=== PATIENT | female | born 1985 | race Caucasian/White ===

== ENCOUNTER 2016-12-02 09:52 | Emergency (ER) | payer MEDICAID ==
--- NOTE | 2016-12-02 10:05 | Emergency Department Record ---
History of Present Illness - General Chief complaint: Dental Stated complaint: DENTAL PAIN Time Seen by Provider: 12/02/16 10:05 Source: Patient Mode of Arrival: Ambulatory Limitations: No limitations - History of Present Illness Initial comments: The patient is here due to L sided dental pain for 1 day. The upper and lower molars on the L seem to be painful. She denies any swelling, fever, chills, or trauma. MD complaint: Tooth pain Onset/Timin -: Days(s) Severity: Moderate Severity scale (1-10): 10 Quality: Aching, Sharp Consistency: Constant Improves with: None - Related Data Previous Rx's Medication Instructions Recorded Naproxen [Naprosyn] 500 mg PO BID #14 tablet. 12/02/16 Penicillin V Potassium 500 mg PO QID #28 tablet 12/02/16 Allergies Allergy/AdvReac Type Severity Reaction Status Date / Time diphenhydramine HCl Allergy Severe SWELLING Verified 12/02/16 10:00 [From Benadryl] OF THE FACE divalproex sodium Allergy Severe RAPID Verified 12/02/16 10:00 [From Depakote] HEART RATE citalopram hydrobromide Allergy Intermediate RASH Verified 12/02/16 10:00 [From Celexa] escitalopram oxalate Allergy Intermediate RASH Verified 12/02/16 10:00 [From Lexapro] haloperidol [From Haldol] Allergy Intermediate RASH Verified 12/02/16 10:00 haloperidol lactate Allergy Intermediate RASH Verified 12/02/16 10:00 [From Haldol] latex Allergy Intermediate RASH Verified 12/02/16 10:00 Travel Screening - Travel/Exposure Within Last 30 Days Have you traveled within the last 30 days?: No - Travel/Exposure Within Last Year Have you traveled outside the [place] in the last year?: No - Additonal Travel Details Have you been exposed to anyone with a communicable illness?: No - Travel Symptoms Symptom Screening: None Review of Systems Constitutional: Denies: Chills, Fever Eyes: Denies: Eye discharge ENT: Denies: Congestion Respiratory: Denies: Cough, Dyspnea Past Medical History - SOCIAL HISTORY Smoking Status: Current every day smoker Alcohol Use: Occassional Drug Use: None - RESPIRATORY Hx Respiratory Disorders: No - CARDIOVASCULAR Hx Cardio Disorders: Yes Hx Hypertension: Yes - NEURO Hx Neuro Disorders: No - GI Hx GI Disorders: No - Hx Genitourinary Disorders: No - ENDOCRINE Hx Endocrine Disorders: No - MUSCULOSKELETAL Hx Musculoskeletal Disorders: No - PSYCH Hx Psych Problems: Yes Hx Anxiety: Yes - HEMATOLOGY/ONCOLOGY Hx Hematology/Oncology Disorders: No Family Medical History Any Significant Family History?: Yes Hx Cancer: Father, Mother Hx Depression: Father, Mother Hx Stroke: Grandparents Physical Exam - General General Appearance: Alert, Oriented x3, Cooperative, No acute distress - Head Head exam: Atraumatic, Normocephalic, Normal inspection - Eye Eye exam: Normal appearance, PERRL - ENT Teeth exam: Dental caries, Dental tenderness # (14, 15, and 18, 19. There is no abscess or gum line swelling.). negative: Normal inspection Throat exam: Normal inspection. negative: Tonsillar erythema, Tonsillomegaly - Neck Neck exam: Normal inspection, Full ROM. negative: Tenderness - Respiratory Respiratory exam: Normal lung sounds bilaterally. negative: Respiratory distress Course Vital Signs 12/02/16 12/02/16 09:55 10:01 Temperature 97.6 F 97.4 F L Pulse Rate [ 65 Pulse Ox Probe] Respiratory 12 Rate Blood Pressure 158/96 [Left Arm] Pulse Ox 98 - Reevaluation(s) Reevaluation #1: I did discuss the plan with the patient to take the medicines and F/U with her Dentist HARDIK. 12/02/16 10:12 Disposition Disposition: Discharge Clinical Impression: Pain, dental Disposition: Home, Self-Care Condition: (1) Good Instructions: Toothache (ED) Additional Instructions: Please take the Penicillin and Naprosyn as directed. Please see your Dentist tomorrow for recheck. Prescriptions: Naproxen [Naprosyn] 500 mg PO BID #14 tablet. Penicillin V Potassium 500 mg PO QID #28 tablet Forms: Patient Portal Access Time of Disposition: 10:09
== END 2016-12-02 10:18 | disposition home or self-care (01) ==
LOC: ER 09:52
DX: K02.9 Dental caries, unspecified (principal)
CPT/HCPCS: 99282

== ENCOUNTER 2017-03-03 21:17 | Emergency (ER) | payer MEDICAID ==
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
[2017-03-03] MEDS ORDERED: HYDROXYZINE PAMOATE 25 MG CAPSULE PO ONE ×2 (21:42→22:21)
[2017-03-03] MEDS ORDERED: ACETAMINOPHEN 325 MG TAB PO ONE (21:42)
== END 2017-03-03 22:35 | disposition home or self-care (01) ==
LOC: ER 21:17
DX: S40.011A Contusion of right shoulder, initial encounter (principal); R51 Headache; R03.0 Elevated blood-pressure reading, without diagnosis of hypertension; Y04.2XXA Assault by strike against or bumped into by another person, initial encounter; Y92.002 Bathroom of unspecified non-institutional (private) residence as the place of occurrence of the external cause
CPT/HCPCS: 99283; 99284

== ENCOUNTER 2017-07-26 23:01 | Emergency (ER) | payer MEDICAID ==
[2017-07-27] MEDS ORDERED: ONDANSETRON HCL IV 4 MG/2 ML VIAL IV ONE (00:11)
[2017-07-27] MEDS ORDERED: 0.9 % SODIUM CHLORIDE 1,000 ML BAG IV ONE (00:11)
[2017-07-27] MEDS ORDERED: ONDANSETRON HCL IV 4 MG/2 ML VIAL IVP ONE (00:17)
[2017-07-27] MEDS ORDERED: MORPHINE SULFATE 5 MG/ML PFS IVP ONE (00:17)
--- NOTE | 2017-07-27 00:17 | Emergency Department Record ---
History of Present Illness - General Chief Complaint: Abdominal Pain Stated Complaint: ABDOMINAL PAIN Time Seen by Provider: 07/26/17 23:25 Source: Patient, Family Mode of Arrival: Ambulatory Limitations: No limitations - History of Present Illness Initial Comments: 32 yo female presents with 5 days of nausea, vomiting, urinary frequency, abdominal pain that starts on the right side. No hematuria. No diarrhea. No fever. She has a history of 2 times and histerectomy. No rash. No fever. She has had gall bladder issues in the past. No blood in the vomit or diarrhea. No sick contacts. No pain with urination. MD Complaint: Abdominal pain Onset/Timin -: Week(s) Location: R Flank Radiation: LLQ, RLQ Migration to: RUQ Severity: Moderate Quality: Cramping, Sharp, Stabbing Consistency: Intermittent Improves With: Nothing Worsens With: Nothing Associated Symptoms: Anorexia, Nausea, Vomiting, Other - Related Data Patient : No Previous Rx's Medication Instructions Recorded Hydrocodone/Acetaminophen [[place] 1 each PO Q8H #8 tablet 07/27/17 5-325 Tablet] Ondansetron [Zofran Odt] 4 mg PO Q8H #15 tab.rapdis 07/27/17 Allergies Allergy/AdvReac Type Severity Reaction Status Date / Time diphenhydramine HCl Allergy Severe SWELLING Unverified 06/05/17 09:29 [From Benadryl] OF THE FACE divalproex sodium Allergy Severe RAPID Unverified 06/05/17 09:29 [From Depakote] HEART RATE citalopram hydrobromide Allergy Intermediate RASH Unverified 06/05/17 09:29 [From Celexa] escitalopram oxalate Allergy Intermediate RASH Unverified 06/05/17 09:29 [From Lexapro] haloperidol [From Haldol] Allergy Intermediate RASH Unverified 06/05/17 09:29 haloperidol lactate Allergy Intermediate RASH Unverified 06/05/17 09:29 [From Haldol] latex Allergy Intermediate RASH Unverified 06/05/17 09:29 Travel Screening - Travel/Exposure Within Last 30 Days Have you traveled within the last 30 days?: No - Travel Symptoms Symptom Screening: Vomiting, Stomach Pain Review of Systems Constitutional: Denies: Chills, Fever, Malaise, Weakness Eyes: Denies: Eye discharge, Eye pain, Photophobia ENT: Denies: Congestion, Throat pain Respiratory: Denies: Cough, Dyspnea, Hemoptysis, Stridor, Wheezes Cardiovascular: Denies: Chest pain, Palpitations, Syncope Endocrine: Reports: Polyuria. Denies: Fatigue Gastrointestinal: Reports: Abdominal pain, Nausea, Vomiting. Denies: Diarrhea, Hematemesis, Hematochezia, Melena Genitourinary: Reports: Frequency, Urgency. Denies: Discharge, Dysuria, Hematuria, Incontinence, Retention Musculoskeletal: Reports: Back pain. Denies: Arthralgia, Joint swelling, Myalgia, Neck pain Skin: Denies: Bruising, Change in color, Rash Neurological: Denies: Headache, Numbness, Vertigo, Weakness Psychiatric: Denies: Anxiety Hematological/Lymphatic: Denies: Blood Clots, Easy bleeding, Easy bruising, Swollen glands Past Medical History - SOCIAL HISTORY Smoking Status: Current every day smoker - RESPIRATORY Hx Respiratory Disorders: No - CARDIOVASCULAR Hx Cardio Disorders: Yes Hx Hypertension: Yes - NEURO Hx Neuro Disorders: No - GI Hx GI Disorders: No - Hx Genitourinary Disorders: No - ENDOCRINE Hx Endocrine Disorders: No - MUSCULOSKELETAL Hx Musculoskeletal Disorders: No - PSYCH Hx Psych Problems: Yes Hx Anxiety: Yes Comment:: PTSD. scizophernia - HEMATOLOGY/ONCOLOGY Hx Hematology/Oncology Disorders: No Family Medical History Any Significant Family History?: Yes Hx Cancer: Father, Mother Hx Depression: Father, Mother Hx Stroke: Grandparents Physical Exam - General General Appearance: Alert, Oriented x3, Cooperative, No acute distress Limitations: No limitations - Head Head exam: Atraumatic, Normal inspection - Eye Eye exam: Normal appearance, PERRL. negative: Conjunctival injection, Periorbital swelling - ENT ENT exam: Normal exam, Mucous membranes moist, Normal orophraynx. negative: Mucous membranes dry Ear exam: Normal external inspection Nasal Exam: Normal inspection Mouth exam: Normal external inspection - Neck Neck exam: Normal inspection, Full ROM. negative: Tenderness - Respiratory Respiratory exam: Normal lung sounds bilaterally. negative: Respiratory distress - Cardiovascular Cardiovascular Exam: Regular rate, Normal rhythm, Normal heart sounds - GI/Abdominal GI/Abdominal exam: Soft, Tenderness (tender in the RUQ, right flank, soft, non distended). negative: Distended, Guarding - Rectal Rectal exam: Deferred - exam: Deferred - Extremities Extremities exam: Normal inspection, Full ROM, Normal capillary refill. negative: Tenderness - Back Back exam: Reports: Normal inspection, CVA tenderness (R), Full ROM, Tenderness. Denies: Muscle spasm, Rash noted - Neurological Neurological exam: Alert, Normal gait, Oriented X3 - Psychiatric Psychiatric exam: Normal affect, Normal mood. negative: Agitated, Anxious - Skin Skin exam: Dry, Intact, Normal color, Warm Course Vital Signs 07/26/17 23:57 Temperature 98.1 F Pulse Rate [ 71 Pulse Ox Probe] Respiratory 20 Rate Blood Pressure 138/78 [Left Arm] Pulse Ox 97 - Reevaluation(s) Reevaluation #1: UA is normal with Spec [place] of 1.030 07/27/17 00:45 Reevaluation #2: No acute changes on the CBC VRAD CT scan demonstrates benign right adrenal adenoma, 2.1 cm benign left ovarian cyst. 07/27/17 01:09 Reevaluation #3: No acute changes on the CMP or Lipase 07/27/17 01:16 Medical Decision Making - Lab Data Result diagrams: 07/27/17 00:42 07/27/17 00:42 Disposition Disposition: Discharge Clinical Impression: Vomiting Qualifiers: Vomiting type: unspecified Vomiting Intractability: non-intractable Nausea presence: with nausea Qualified Code(s): R11.2 - Nausea with vomiting, unspecified Abdominal pain Qualifiers: Abdominal location: right upper quadrant Qualified Code(s): R10.11 - Right upper quadrant pain Disposition: Home, Self-Care Condition: (1) Good Instructions: Abdominal Pain (ED) Additional Instructions: Return to the ER if you have fever, uncontrolled nausea, pain or any new concerns Recheck your urine with your doctor first of the week if your urinary symptoms continue If you pain continues then you may need further work up that could include a HIDA scan or GI consult. Prescriptions: Hydrocodone/Acetaminophen [[place] 5-325 Tablet] 1 each PO Q8H #8 tablet Ondansetron [Zofran Odt] 4 mg PO Q8H #15 tab.rapdis Forms: Patient Portal Access Time of Disposition: 01:18 Quality - Quality Measures Quality Measures: N/A - Blood Pressure Screening Does Patient Have Any of the Following: No Blood Pressure Classification: Pre-Hypertensive BP Reading Systolic Measurement: 138 Diastolic Measurement: 78 Screening for High Blood Pressure: < Pre-Hypertensive BP, F/U Documented > [ [id number]] Pre-Hypertensive Follow-up Interventions: Referral to alternative/primary care provider.
[2017-07-27 00:30] LABS: URINE APPEARANCE CLEAR; URINE BILIRUBIN NEGATIVE (NEGATIVE); URINE BLOOD NEGATIVE (NEGATIVE); URINE COLOR YELLOW; URINE GLUCOSE (UA) NEGATIVE (NEGATIVE); URINE KETONE NEGATIVE (NEGATIVE); URINE LEUKOCYTE ESTERASE NEGATIVE (NEGATIVE); URINE NITRITE NEGATIVE (NEGATIVE); URINE PROTEIN NEGATIVE (NEGATIVE); URINE UROBILINOGEN 0.2 E.U./dL (0.20 - 1.00)
[2017-07-27 00:34] LABS: HCG,QUALITATIVE URINE NEGATIVE (NEGATIVE)
[2017-07-27 00:52] LABS: BASO % 0.2 % (0-6); EOS % 1.6 % (0-6); HEMATOCRIT 41.1 % (35.0-47.0); HEMOGLOBIN 14.2 gm/dl (11.6-16.0); LYMPH % 37.3 % (16-45); MEAN CELL VOLUME 90.1 fl (81-97); MEAN CORPUSCULAR HEMOGLOBIN 31.1 pg (27-33); MEAN CORPUSCULAR HGB CONC 34.5 g/dl (32-36); MEAN PLATELET VOLUME 11.2 fl (7.4-10.4); MONO % 7.9 % (0-9); PLATELET COUNT 266 K/uL (130-400); RED BLOOD COUNT 4.56 M/uL (3.80-5.40); RED CELL DISTRIBUTION WIDTH 13.2 % (11.5-14.5); WHITE BLOOD COUNT W/O DIFF 12.2 K/uL (4.2-12.2)
[2017-07-27 01:12] LABS: ALB/GLOB RATIO 1.3 (1.1-1.8); ALKALINE PHOSPHATASE 67 U/L (38-126); ALT/SGPT 32 U/L (9-52); ANION GAP 7.2 (7-16); AST/SGOT 15 U/L (14-36); BILIRUBIN,TOTAL 0.45 mg/dL (0.2-1.3); BLOOD UREA NITROGEN 15 mg/dL (7-17); CARBON DIOXIDE 24.8 mmol/L (22-30); CREATININE 0.8 mg/dL (0.52-1.04); EST GLOMERULAR FILTRATION RATE > 60 ml/min; GLUCOSE,RANDOM 99 mg/dL (70-110); LIPASE 107 U/L (23-300)
--- NOTE | 2017-07-27 22:13 | CT SCAN REPORT ---
EXAM: CT SCAN ABDOMEN/PELVIS WO CONTRAST HISTORY: ACUTE RIGHT LOWER QUADRANT ABDOMINAL PAIN, FLANK PAIN. COMPARISON: None. TECHNIQUE: Contiguous axial images from the lung bases through the symphysis pubis were obtained without IV contrast. FINDINGS: The lung bases are clear. The liver, spleen, and kidneys are unremarkable. No calculi or hydronephrosis. Small right adrenal nodule measuring -5 Hounsfield units in density and 16 mm in size consistent with benign adenoma. Normal left adrenal. The pancreas and gallbladder are normal. Visualized loops of small and large bowel are of normal caliber with normal appendix. Small amount of fecal material throughout the colon. No bowel wall thickening. The urinary bladder is unremarkable. No free intraperitoneal fluid or adenopathy. Minimal aortic calcification. No lytic or blastic osseous lesion. IMPRESSION: 1. NO ACUTE PROCESS OF THE ABDOMEN OR PELVIS. NORMAL APPENDIX. 2. BENIGN RIGHT ADRENAL ADENOMA. JOB NUMBER: [id number] [facility]
== END 2017-07-27 01:42 | disposition home or self-care (01) ==
LOC: ER 23:01
DX: R10.11 Right upper quadrant pain (principal); R11.2 Nausea with vomiting, unspecified
CPT/HCPCS: 99284 ×2; 96374; 96375; 83690; 85025; 80053; 81003; 81025; 74176; J2405; J2270; J7030

== ENCOUNTER 2017-10-01 14:26 | Emergency (ER) | payer MEDICAID ==
--- NOTE | 2017-10-01 15:23 | Emergency Department Record ---
History of Present Illness - General Chief Complaint: Depression Stated Complaint: MEDS MAKING PT FEEL DEPRESSED Time Seen by Provider: 10/01/17 15:06 Source: Patient Mode of Arrival: Ambulatory Limitations: No limitations Travel/Exposure to [place] Within 21 Days of Symptoms: No - History of Present Illness Initial Comments: pt has been on paxil since april by her family doctor and feels it is not working. she feels angry and is breaking things. she denies being suicidal or homicidal. she has had 2 recent funerals and is depressed. she attempted to be seen by [facility] and was sent over here Complaint: Feels depressed Onset/Timin -: Week(s) Associated Psychiatric Symptoms: Depression, Racing thoughts History of same: Yes Quality: Intermittent Improves With: None Worsens With: Medication Context: New medication(s), Significant life stressor Associated Symptoms: Denies other symptoms Treatments Prior to Arrival: None - [place] Coma Scale Eye Response: (4) Open spontaneously Motor Response: (6) Obeys commands Verbal Response: (5) Oriented Danielle Total: 15 - Related Data Previous Rx's Medication Instructions Recorded Ondansetron [Zofran Odt] 4 mg PO Q8H #15 tab.rapdis 07/27/17 Lorazepam [Ativan] 0.5 mg PO TID #20 tablet 10/01/17 Allergies Allergy/AdvReac Type Severity Reaction Status Date / Time diphenhydramine HCl Allergy Severe SWELLING Verified 10/01/17 14:40 [From Benadryl] OF THE FACE divalproex sodium Allergy Severe RAPID Verified 10/01/17 14:40 [From Depakote] HEART RATE citalopram hydrobromide Allergy Intermediate RASH Verified 10/01/17 14:40 [From Celexa] escitalopram oxalate Allergy Intermediate RASH Verified 10/01/17 14:40 [From Lexapro] haloperidol [From Haldol] Allergy Intermediate RASH Verified 10/01/17 14:40 haloperidol lactate Allergy Intermediate RASH Verified 10/01/17 14:40 [From Haldol] latex Allergy Intermediate RASH Verified 10/01/17 14:40 Review of Systems Reviewed: No additional complaints except as noted below Constitutional: Reports: As per HPI. Denies: Chills, Fever, Malaise, Night sweats, Weakness, Weight change Eyes: Reports: As per HPI. Denies: Eye discharge, Eye pain, Photophobia, Vision change ENT: Reports: As per HPI. Denies: Congestion, Dental pain, Ear pain, Epistaxis , Hearing loss, Throat pain Respiratory: Reports: As per HPI. Denies: Cough, Dyspnea, Hemoptysis, Stridor, Wheezes Cardiovascular: Reports: As per HPI. Denies: Arrhythmia, Chest pain, Dyspnea on exertion, Edema, Murmurs, Orthopnea, Palpitations, Paroxysmal nocturnal dyspnea, Rheumatic Fever, Syncope Endocrine: Reports: As per HPI. Denies: Fatigue, Heat or cold intolerance, Polydipsia, Polyuria Gastrointestinal: Reports: As per HPI. Denies: Abdominal pain, Constipation, Diarrhea, Hematemesis, Hematochezia, Melena, Nausea, Vomiting Genitourinary: Reports: As per HPI. Denies: Abnormal menses, Discharge, Dyspareunia, Dysuria, Frequency, Hematuria, Incontinence, Retention, Urgency Musculoskeletal: Reports: As per HPI. Denies: Arthralgia, Back pain, Gout, Joint swelling, Myalgia, Neck pain Skin: Reports: As per HPI. Denies: Bruising, Change in color, Change in hair/ nails, Lesions, Pruritus, Rash Neurological: Reports: As per HPI. Denies: Abnormal gait, Confusion, Headache, Numbness, Paresthesias, Seizure, Tingling, Tremors, Vertigo, Weakness Psychiatric: Reports: As per HPI. Denies: Anxiety, Auditory hallucinations, Depression, Homicidal thoughts, Suicidal thoughts, Visual hallucinations Hematological/Lymphatic: Reports: As per HPI. Denies: Anemia, Blood Clots, Easy bleeding, Easy bruising, Swollen glands Past Medical History - SOCIAL HISTORY Smoking Status: Current every day smoker Alcohol Use: None Drug Use: None - RESPIRATORY Hx Respiratory Disorders: No - CARDIOVASCULAR Hx Cardio Disorders: Yes Hx Hypertension: Yes - NEURO Hx Neuro Disorders: No - GI Hx GI Disorders: No - Hx Genitourinary Disorders: No - ENDOCRINE Hx Endocrine Disorders: No - MUSCULOSKELETAL Hx Musculoskeletal Disorders: No - PSYCH Hx Psych Problems: Yes Hx Anxiety: Yes Comment:: PTSD. scizophernia - HEMATOLOGY/ONCOLOGY Hx Hematology/Oncology Disorders: No Family Medical History Any Significant Family History?: Yes Hx Cancer: Father, Mother Hx Depression: Father, Mother Hx Stroke: Grandparents Physical Exam - General General Appearance: Alert, Oriented x3, Cooperative, Mild distress - Head Head exam: Normal inspection - Eye Eye exam: Normal appearance, PERRL, EOMI Pupils: Normal accommodation - ENT ENT exam: Normal exam, Mucous membranes moist, Normal external ear exam, Normal orophraynx Ear exam: Normal external inspection. negative: External canal tenderness Nasal Exam: Normal inspection. negative: Discharge, Sinus tenderness Mouth exam: Normal external inspection, Tongue normal Teeth exam: Normal inspection. negative: Dental caries Throat exam: Normal inspection. negative: Tonsillar erythema, Tonsillar exudate - Neck Neck exam: Normal inspection, Full ROM. negative: Tenderness - Respiratory Respiratory exam: Normal lung sounds bilaterally. negative: Respiratory distress - Cardiovascular Cardiovascular Exam: Regular rate, Normal rhythm, Normal heart sounds - GI/Abdominal GI/Abdominal exam: Soft, Normal bowel sounds. negative: Tenderness - Rectal Rectal exam: Deferred - exam: Deferred - Extremities Extremities exam: Normal inspection, Full ROM, Normal capillary refill. negative: Tenderness - Back Back exam: Reports: Normal inspection, Full ROM. Denies: Muscle spasm, Rash noted, Tenderness - Neurological Neurological exam: Alert, CN II-XII intact, Normal gait, Oriented X3 - Psychiatric Psychiatric exam: Depressed, Normal mood - Skin Skin exam: Dry, Intact, Normal color, Warm Course Vital Signs 10/01/17 14:32 Temperature 98.1 F Pulse Rate 71 Respiratory 18 Rate Blood Pressure 177/97 Pulse Ox 97 - Reevaluation(s) Reevaluation #1: 10/01/17 15:22 case d/w dr smith who came over to dept. taper planned off of paxil. ativan to help with bridge and anxiety Disposition Disposition: Discharge Clinical Impression: Anxiety Depression Qualifiers: Depression Type: other depression Qualified Code(s): F32.89 - Other specified depressive episodes Disposition: Home, Self-Care Condition: (1) Good Instructions: Depression (ED), Anxiety (ED) Additional Instructions: taper paxil to every other day. follow up with dr smith next week. return sooner if worse Prescriptions: Lorazepam [Ativan] 0.5 mg PO TID #20 tablet Quality - Quality Measures Quality Measures: N/A - Blood Pressure Screening Does Patient Have Any of the Following: No Blood Pressure Classification: Hypertensive Reading Systolic Measurement: 177 Diastolic Measurement: 97 Screening for High Blood Pressure: < First Hypertensive BP, F/U Documented > [ G8950] First Hypertensive Follow-up Interventions: Follow-up with rescreen GT 1 day and LT 4 weeks.
== END 2017-10-01 15:37 | disposition home or self-care (01) ==
LOC: ER 14:26
DX: F41.9 Anxiety disorder, unspecified (principal); F32.89 Other specified depressive episodes; F43.10 Post-traumatic stress disorder, unspecified; F20.9 Schizophrenia, unspecified
CPT/HCPCS: 99282

== ENCOUNTER 2018-05-14 11:33 | Emergency (ER) | payer MEDICAID ==
--- NOTE | 2018-05-14 12:00 | Emergency Department Record ---
History of Present Illness - General Chief Complaint: Abdominal Pain Stated Complaint: STOMACH PAINS Time Seen by Provider: 05/14/18 11:59 Mode of Arrival: Ambulatory - History of Present Illness Initial Comments: vomiting and epigastric abdominal pain which started yesterday. she also has diarrhea. Onset/Timin -: Days(s) Radiation: None Quality: Aching Consistency: Constant Improves With: Nothing Worsens With: Nothing Associated Symptoms: Diarrhea, Fever, Nausea, Vomiting - Related Data Patient : No Previous Rx's Medication Instructions Recorded Omeprazole 20 mg PO DAILY #30 cap 05/14/18 Allergies Allergy/AdvReac Type Severity Reaction Status Date / Time diphenhydramine HCl Allergy Severe SWELLING Verified 05/14/18 11:41 [From Benadryl] OF THE FACE divalproex sodium Allergy Severe RAPID Verified 05/14/18 11:41 [From Depakote] HEART RATE citalopram hydrobromide Allergy Intermediate RASH Verified 05/14/18 11:41 [From Celexa] escitalopram oxalate Allergy Intermediate RASH Verified 05/14/18 11:41 [From Lexapro] haloperidol [From Haldol] Allergy Intermediate RASH Verified 05/14/18 11:41 haloperidol lactate Allergy Intermediate RASH Verified 05/14/18 11:41 [From Haldol] latex Allergy Intermediate RASH Verified 05/14/18 11:41 Travel Screening - Travel/Exposure Within Last 30 Days Have you traveled within the last 30 days?: No Review of Systems Reviewed: No additional complaints except as noted below Constitutional: Reports: As per HPI. Denies: Chills, Fever, Malaise, Night sweats, Weakness, Weight change Eyes: Reports: As per HPI. Denies: Eye discharge, Eye pain, Photophobia, Vision change ENT: Reports: As per HPI. Denies: Congestion, Dental pain, Ear pain, Epistaxis , Hearing loss, Throat pain Respiratory: Reports: As per HPI. Denies: Cough, Dyspnea, Hemoptysis, Stridor, Wheezes Cardiovascular: Reports: As per HPI. Denies: Arrhythmia, Chest pain, Dyspnea on exertion, Edema, Murmurs, Orthopnea, Palpitations, Paroxysmal nocturnal dyspnea, Rheumatic Fever, Syncope Endocrine: Reports: As per HPI. Denies: Fatigue, Heat or cold intolerance, Polydipsia, Polyuria Gastrointestinal: Reports: As per HPI, Abdominal pain, Diarrhea, Vomiting. Denies: Constipation, Hematemesis, Hematochezia, Melena, Nausea Genitourinary: Reports: As per HPI. Denies: Abnormal menses, Discharge, Dyspareunia, Dysuria, Frequency, Hematuria, Incontinence, Retention, Urgency Musculoskeletal: Reports: As per HPI. Denies: Arthralgia, Back pain, Gout, Joint swelling, Myalgia, Neck pain Skin: Reports: As per HPI. Denies: Bruising, Change in color, Change in hair/ nails, Lesions, Pruritus, Rash Neurological: Reports: As per HPI. Denies: Abnormal gait, Confusion, Headache, Numbness, Paresthesias, Seizure, Tingling, Tremors, Vertigo, Weakness Psychiatric: Reports: As per HPI. Denies: Anxiety, Auditory hallucinations, Depression, Homicidal thoughts, Suicidal thoughts, Visual hallucinations Hematological/Lymphatic: Reports: As per HPI. Denies: Anemia, Blood Clots, Easy bleeding, Easy bruising, Swollen glands Past Medical History - SOCIAL HISTORY Smoking Status: Current every day smoker Alcohol Use: None Drug Use: None - RESPIRATORY Hx Respiratory Disorders: No - CARDIOVASCULAR Hx Cardio Disorders: Yes Hx Hypertension: Yes - NEURO Hx Neuro Disorders: No - GI Hx GI Disorders: No - Hx Genitourinary Disorders: No - ENDOCRINE Hx Endocrine Disorders: No - MUSCULOSKELETAL Hx Musculoskeletal Disorders: No - PSYCH Hx Psych Problems: Yes Hx Anxiety: Yes Comment:: PTSD. scizophernia - HEMATOLOGY/ONCOLOGY Hx Hematology/Oncology Disorders: No Family Medical History Any Significant Family History?: Yes Hx Cancer: Father, Mother Hx Depression: Father, Mother Hx Stroke: Grandparents Physical Exam - General General Appearance: Alert, Oriented x3, Cooperative, No acute distress - Head Head exam: Normal inspection - Eye Eye exam: Normal appearance, PERRL Pupils: Normal accommodation - ENT ENT exam: Normal exam, Mucous membranes moist, Normal external ear exam, Normal orophraynx, TM's normal bilaterally Ear exam: Normal external inspection. negative: External canal tenderness Nasal Exam: Normal inspection. negative: Discharge, Sinus tenderness Mouth exam: Normal external inspection, Tongue normal Teeth exam: Normal inspection. negative: Dental caries Throat exam: Normal inspection. negative: Tonsillar erythema, Tonsillar exudate - Neck Neck exam: Normal inspection, Full ROM. negative: Tenderness - Respiratory Respiratory exam: Normal lung sounds bilaterally. negative: Respiratory distress - Cardiovascular Cardiovascular Exam: Regular rate, Normal rhythm, Normal heart sounds - GI/Abdominal GI/Abdominal exam: Soft, Normal bowel sounds, Tenderness (epigastric discomfort) - Rectal Rectal exam: Deferred - exam: Deferred - Extremities Extremities exam: Normal inspection, Full ROM, Normal capillary refill. negative: Tenderness - Back Back exam: Reports: Normal inspection, Full ROM. Denies: Muscle spasm, Rash noted, Tenderness - Neurological Neurological exam: Alert, Normal gait, Oriented X3, Reflexes normal - Psychiatric Psychiatric exam: Normal affect, Normal mood - Skin Skin exam: Dry, Intact, Normal color, Warm Course Vital Signs 05/14/18 11:38 Temperature 98.4 F Pulse Rate 91 H Respiratory 18 Rate Blood Pressure 122/92 Pulse Ox 94 L GI cocktail relieved her epigastric pain - Reevaluation(s) Reevaluation #1: Patient feels better 05/14/18 13:52 Medical Decision Making - Data Complexity MDM Data: Labs Ordered and/or Reviewed (UA negative, WBC 8,000) - Lab Data Result diagrams: 05/14/18 11:45 05/14/18 11:45 Disposition Clinical Impression: Gastritis Qualifiers: Gastritis type: unspecified gastritis Chronicity: acute Gastritis bleeding: without bleeding Qualified Code(s): K29.00 - Acute gastritis without bleeding Disposition: Home, Self-Care Condition: (1) Good Instructions: Gastritis (ED) Additional Instructions: follow up with family in 2 days clear liquids for 24 hours than bland foods Prescriptions: Omeprazole 20 mg PO DAILY #30 cap.dr Forms: Patient Portal Access Time of Disposition: 13:52 Quality - Quality Measures Quality Measures: N/A - Blood Pressure Screening Does Patient Have Any of the Following: No Blood Pressure Classification: Hypertensive Reading Systolic Measurement: 122 Diastolic Measurement: 92 Screening for High Blood Pressure: < Pre-Hypertensive BP, F/U Documented > [ G8950] Pre-Hypertensive Follow-up Interventions: Referral to alternative/primary care provider.
[2018-05-14] MEDS ORDERED: ONDANSETRON HCL IV 4 MG/2 ML VIAL IV ONE (12:03)
[2018-05-14] MEDS ORDERED: 0.9 % SODIUM CHLORIDE 1,000 ML BAG IV ONE (12:03)
[2018-05-14] MEDS ORDERED: MAGNESIUM HYDROXIDE/AL HYDROX 30 ML, LIDOCAINE VISC 2% 15ML 15 ML PO ONE ×2 (12:06)
[2018-05-14 12:16] LABS: BASO % 0.2 % (0-6); GRAN % 46.8 % (47-80); HEMATOCRIT 41.2 % (35.0-47.0); HEMOGLOBIN 14.2 gm/dl (11.6-16.0); LYMPH % 43.2 % (16-45); MEAN CELL VOLUME 88.2 fl (81-97); MEAN CORPUSCULAR HEMOGLOBIN 30.4 pg (27-33); MEAN CORPUSCULAR HGB CONC 34.5 g/dl (32-36); MEAN PLATELET VOLUME 10.8 fl (7.4-10.4); MONO % 6.8 % (0-9); PLATELET COUNT 249 K/uL (130-400); RED BLOOD COUNT 4.67 M/uL (3.80-5.40); RED CELL DISTRIBUTION WIDTH 12.9 % (11.5-14.5)
[2018-05-14 12:26] LABS: BLOOD UREA NITROGEN 11 mg/dL (6-20); CREATININE 0.6 mg/dL (0.5-0.9); EST GLOMERULAR FILTRATION RATE > 60 mL/min
[2018-05-14 12:29] LABS: GLUCOSE,RANDOM 93 mg/dL (74-109)
[2018-05-14 12:31] LABS: ALT/SGPT 16 U/L (<33); AST/SGOT 13 U/L (10.0-35.0)
[2018-05-14 12:32] LABS: ALBUMIN 4.1 g/dL (4.0-5.0); ALKALINE PHOSPHATASE 82 U/L (35-104); LIPASE 26 U/L (13-60)
[2018-05-14 12:34] LABS: BILIRUBIN,DIRECT < 0.2 mg/dL (0-0.3)
[2018-05-14 13:43] LABS: URINE APPEARANCE CLEAR; URINE BILIRUBIN NEGATIVE (NEGATIVE); URINE BLOOD NEGATIVE (NEGATIVE); URINE COLOR YELLOW; URINE GLUCOSE (UA) NEGATIVE (NEGATIVE); URINE KETONE NEGATIVE (NEGATIVE); URINE LEUKOCYTE ESTERASE NEGATIVE (NEGATIVE); URINE NITRITE NEGATIVE (NEGATIVE); URINE PROTEIN NEGATIVE (NEGATIVE); URINE UROBILINOGEN 0.2 E.U./dL (0.20 - 1.00)
[2018-05-14 15:47] LABS: HCG,QUALITATIVE URINE NEGATIVE (NEGATIVE)
== END 2018-05-14 14:11 | disposition home or self-care (01) ==
LOC: ER 11:33
DX: K29.00 Acute gastritis without bleeding (principal); R19.7 Diarrhea, unspecified; R11.2 Nausea with vomiting, unspecified; I10 Essential (primary) hypertension; F17.210 Nicotine dependence, cigarettes, uncomplicated
CPT/HCPCS: 80048; 80076; 81003; 81025; 83690; 85025; 96361; 96374; 99284; J2405; J3490; J7030

== ENCOUNTER 2018-06-06 00:17 | Emergency (ER) | payer MEDICAID ==
[2018-06-06] MEDS ORDERED: ONDANSETRON HCL IV 4 MG/2 ML VIAL IV ONE (00:48)
[2018-06-06] MEDS ORDERED: 0.9 % SODIUM CHLORIDE 1,000 ML BAG IV ONE (00:48)
[2018-06-06 00:56] LABS: URINE APPEARANCE CLEAR; URINE BILIRUBIN NEGATIVE (NEGATIVE); URINE BLOOD NEGATIVE (NEGATIVE); URINE COLOR YELLOW; URINE GLUCOSE (UA) NEGATIVE (NEGATIVE); URINE KETONE NEGATIVE (NEGATIVE); URINE LEUKOCYTE ESTERASE NEGATIVE (NEGATIVE); URINE NITRITE NEGATIVE (NEGATIVE); URINE PROTEIN NEGATIVE (NEGATIVE); URINE UROBILINOGEN 0.2 E.U./dL (0.20 - 1.00)
--- NOTE | 2018-06-06 00:56 | Emergency Department Record ---
History of Present Illness - General Chief Complaint: Abdominal Pain Stated Complaint: ABDOMINAL PAIN Time Seen by Provider: 06/06/18 00:26 Source: Patient Mode of Arrival: Ambulatory Limitations: No limitations - History of Present Illness Initial Comments: pt has been having abd pain for 2 days in ruq and thru to her back. it started out after eating. she has n. no v/c/d. she was seen in april for similar complaints. she has not f/u w her family doctor -: Month(s) Location: RUQ Radiation: Back Severity scale (1-10): 5 Consistency: Intermittent Improves With: Rest Worsens With: Eating Associated Symptoms: Nausea - Related Data Patient : No Previous Rx's Medication Instructions Recorded Omeprazole 20 mg PO DAILY #30 cap. 05/14/18 Allergies Allergy/AdvReac Type Severity Reaction Status Date / Time diphenhydramine HCl Allergy Severe SWELLING Verified 05/14/18 11:41 [From Benadryl] OF THE FACE divalproex sodium Allergy Severe RAPID Verified 05/14/18 11:41 [From Depakote] HEART RATE citalopram hydrobromide Allergy Intermediate RASH Verified 05/14/18 11:41 [From Celexa] escitalopram oxalate Allergy Intermediate RASH Verified 05/14/18 11:41 [From Lexapro] haloperidol [From Haldol] Allergy Intermediate RASH Verified 05/14/18 11:41 haloperidol lactate Allergy Intermediate RASH Verified 05/14/18 11:41 [From Haldol] latex Allergy Intermediate RASH Verified 05/14/18 11:41 Travel Screening - Travel/Exposure Within Last 30 Days Have you traveled within the last 30 days?: No - Travel Symptoms Symptom Screening: None Review of Systems Reviewed: No additional complaints except as noted below Constitutional: Reports: As per HPI. Denies: Chills, Fever, Malaise, Night sweats, Weakness, Weight change Eyes: Reports: As per HPI. Denies: Eye discharge, Eye pain, Photophobia, Vision change ENT: Reports: As per HPI. Denies: Congestion, Dental pain, Ear pain, Epistaxis , Hearing loss, Throat pain Respiratory: Reports: As per HPI. Denies: Cough, Dyspnea, Hemoptysis, Stridor, Wheezes Cardiovascular: Reports: As per HPI. Denies: Arrhythmia, Chest pain, Dyspnea on exertion, Edema, Murmurs, Orthopnea, Palpitations, Paroxysmal nocturnal dyspnea, Rheumatic Fever, Syncope Endocrine: Reports: As per HPI. Denies: Fatigue, Heat or cold intolerance, Polydipsia, Polyuria Gastrointestinal: Reports: As per HPI. Denies: Abdominal pain, Constipation, Diarrhea, Hematemesis, Hematochezia, Melena, Nausea, Vomiting Genitourinary: Reports: As per HPI. Denies: Abnormal menses, Discharge, Dyspareunia, Dysuria, Frequency, Hematuria, Incontinence, Retention, Urgency Musculoskeletal: Reports: As per HPI. Denies: Arthralgia, Back pain, Gout, Joint swelling, Myalgia, Neck pain Skin: Reports: As per HPI. Denies: Bruising, Change in color, Change in hair/ nails, Lesions, Pruritus, Rash Neurological: Reports: As per HPI. Denies: Abnormal gait, Confusion, Headache, Numbness, Paresthesias, Seizure, Tingling, Tremors, Vertigo, Weakness Psychiatric: Reports: As per HPI. Denies: Anxiety, Auditory hallucinations, Depression, Homicidal thoughts, Suicidal thoughts, Visual hallucinations Hematological/Lymphatic: Reports: As per HPI. Denies: Anemia, Blood Clots, Easy bleeding, Easy bruising, Swollen glands Past Medical History - SOCIAL HISTORY Smoking Status: Current every day smoker - RESPIRATORY Hx Respiratory Disorders: No - CARDIOVASCULAR Hx Cardio Disorders: Yes Hx Hypertension: Yes - NEURO Hx Neuro Disorders: No - GI Hx GI Disorders: No - Hx Genitourinary Disorders: No - ENDOCRINE Hx Endocrine Disorders: No - MUSCULOSKELETAL Hx Musculoskeletal Disorders: No - PSYCH Hx Psych Problems: Yes Hx Anxiety: Yes Hx Depression: Yes Comment:: PTSD. scizophernia - HEMATOLOGY/ONCOLOGY Hx Hematology/Oncology Disorders: No Family Medical History Any Significant Family History?: Yes Hx Cancer: Father, Mother Hx Depression: Father, Mother Hx Stroke: Grandparents Physical Exam - General General Appearance: Alert, Oriented x3, Cooperative, Mild distress - Head Head exam: Normal inspection - Eye Eye exam: Normal appearance, PERRL, EOMI Pupils: Normal accommodation - ENT ENT exam: Normal exam, Mucous membranes moist, Normal external ear exam, Normal orophraynx Ear exam: Normal external inspection. negative: External canal tenderness Nasal Exam: Normal inspection. negative: Discharge, Sinus tenderness Mouth exam: Normal external inspection, Tongue normal Teeth exam: Normal inspection. negative: Dental caries Throat exam: Normal inspection. negative: Tonsillar erythema, Tonsillar exudate - Neck Neck exam: Normal inspection, Full ROM. negative: Tenderness - Respiratory Respiratory exam: Normal lung sounds bilaterally. negative: Respiratory distress - Cardiovascular Cardiovascular Exam: Regular rate, Normal rhythm, Normal heart sounds - GI/Abdominal GI/Abdominal exam: Soft, Normal bowel sounds, Tenderness (ruq and rlq) - Rectal Rectal exam: Deferred - exam: Deferred - Extremities Extremities exam: Normal inspection, Full ROM, Normal capillary refill. negative: Tenderness - Back Back exam: Reports: Normal inspection, Full ROM. Denies: Muscle spasm, Rash noted, Tenderness - Neurological Neurological exam: Alert, Normal gait, Oriented X3, Reflexes normal - Psychiatric Psychiatric exam: Normal affect, Normal mood - Skin Skin exam: Dry, Intact, Normal color, Warm Course Vital Signs 06/06/18 00:21 Temperature 98.1 F Pulse Rate [ 64 Pulse Ox Probe] Respiratory 16 Rate Blood Pressure 128/82 [Left Arm] Pulse Ox 99 - Reevaluation(s) Reevaluation #1: 06/06/18 02:17 ct neg for acute. gb contracted Medical Decision Making - Lab Data Result diagrams: 06/06/18 00:35 06/06/18 00:35 Disposition Disposition: Discharge Clinical Impression: Biliary colic Disposition: Home, Self-Care Condition: (1) Good Instructions: Biliary Colic (ED) Additional Instructions: return this am after 7am if still having right upper quadrant pain for ultrasound. return sooner if worse. bland diet Forms: Patient Portal Access Quality - Quality Measures Quality Measures: N/A - Blood Pressure Screening Does Patient Have Any of the Following: No Blood Pressure Classification: Pre-Hypertensive BP Reading Systolic Measurement: 129 Diastolic Measurement: 77 Screening for High Blood Pressure: < Pre-Hypertensive BP, F/U Documented > [ G8950] Pre-Hypertensive Follow-up Interventions: Follow-up with rescreen every year.
[2018-06-06 00:57] LABS: BASO % 0.2 % (0-6); EOS % 2.2 % (0-6); GRAN % 51.4 % (47-80); HEMATOCRIT 39.3 % (35.0-47.0); LYMPH % 39.5 % (16-45); MEAN CELL VOLUME 90.6 fl (81-97); MEAN CORPUSCULAR HGB CONC 33.1 g/dl (32-36); MEAN PLATELET VOLUME 11.3 fl (7.4-10.4); MONO % 6.7 % (0-9); PLATELET COUNT 256 K/uL (130-400); RED BLOOD COUNT 4.34 M/uL (3.80-5.40); WHITE BLOOD COUNT W/O DIFF 9.8 K/uL (4.2-12.2)
[2018-06-06 01:11] LABS: BILIRUBIN,TOTAL < 0.20 mg/dL (0.2-1.0); BLOOD UREA NITROGEN 12 mg/dL (6-20); CREATININE 0.6 mg/dL (0.5-0.9); EST GLOMERULAR FILTRATION RATE > 60 mL/min
[2018-06-06 01:12] LABS: TOTAL PROTEIN 6.4 g/dL (6.6-8.7)
[2018-06-06 01:14] LABS: GLUCOSE,RANDOM 104 mg/dL (74-109)
[2018-06-06 01:16] LABS: ALT/SGPT 8 U/L (<33); AST/SGOT 10 U/L (10.0-35.0)
[2018-06-06 01:17] LABS: ALB/GLOB RATIO 1.4 (1.1-1.8); ALBUMIN 3.7 g/dL (4.0-5.0); ALKALINE PHOSPHATASE 73 U/L (35-104); LIPASE 55 U/L (13-60)
[2018-06-06] MEDS ORDERED: KETOROLAC 30 MG/ML VIAL IVP ONE (02:02)
--- NOTE | 2018-06-07 19:12 | CT SCAN REPORT ---
EXAM: CT SCAN ABDOMEN/PELVIS WO CONTRAST HISTORY: RIGHT UPPER QUADRANT ABDOMINAL PAIN FOR SEVERAL MONTHS. RIGHT LOWER QUADRANT ABDOMINAL PAIN FOR ONE DAY. TECHNIQUE: Routine helical CT examination of the abdomen and pelvis is performed without oral or intravenous contrast administration. Lack of oral and IV contrast utilization limits evaluation of the bowel and solid viscera, respectively. COMPARISON: CT abdomen and pelvis without contrast dated 07/27/2017. FINDINGS: The lung bases are clear and there is no pleural or pericardial effusion. The heart is not enlarged. The liver, spleen, pancreas, left adrenal gland and kidneys are normal in appearance. There is a small right adrenal gland mass redemonstrated measuring 2.3 cm in maximum diameter, unchanged. This has a density of minus 10 Hounsfield units and is consistent with an adenoma. This is stable. The gallbladder is contracted. No cholelithiasis, gallbladder wall thickening, or pericholecystic fluid. No biliary ductal dilatation. No intraabdominal nor retroperitoneal lymphadenopathy. The vasculature, as visualized, is unremarkable. The uterus is surgically absent. Evaluation of the urinary bladder is limited by lack of distention. Trace fluid is suggested within the pelvis. This is nonspecific. There are cystic areas within the right hemipelvis, likely arising within the right ovary. The largest of these measures 2.1 cm in maximum diameter. These are consistent with functional ovarian cysts/follicles. There are follicles/cysts suggested in a superiorly positioned left ovary with a couple punctate calcifications along the margin of one of these cysts. These calcifications are, however, stable and are likely postinflammatory. No gross bowel dilatation nor bowel wall thickening. The appendix is visualized and normal in appearance. The abdominal wall appears intact. No lytic or blastic bone lesion. IMPRESSION: 1. FOLLICLES/CYSTS WITHIN THE OVARIES, RIGHT GREATER THAN LEFT. THERE IS A SMALL AMOUNT OF FREE FLUID WITHIN THE PELVIS, RIGHT OF MIDLINE. THIS MAY RELATE TO RECENT OVARIAN FOLLICLE/CYST RUPTURE. 2. NORMAL APPENDIX. 3. STABLE RIGHT ADRENAL ADENOMA. 4. SURGICAL ABSENCE OF THE UTERUS. JOB NUMBER: [id number] [facility]
== END 2018-06-06 02:43 | disposition home or self-care (01) ==
LOC: ER 00:17
DX: K80.50 Calculus of bile duct without cholangitis or cholecystitis without obstruction (principal); R11.0 Nausea; I10 Essential (primary) hypertension; F17.210 Nicotine dependence, cigarettes, uncomplicated
CPT/HCPCS: 99284 ×2; 96374; 96375; 83690; 85025; 80053; 81003; 74176; J1885; J2405; J7030

== ENCOUNTER 2018-11-07 15:14 | Emergency (ER) | payer MEDICAID ==
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
== END 2018-11-07 16:47 | disposition home or self-care (01) ==
LOC: ER 15:14
DX: F41.9 Anxiety disorder, unspecified (principal); I10 Essential (primary) hypertension; F17.210 Nicotine dependence, cigarettes, uncomplicated
CPT/HCPCS: 99283

== ENCOUNTER 2019-05-08 16:43 | Emergency (ER) | payer MEDICAID ==
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
[2019-05-08] MEDS ORDERED: IBUPROFEN 600 MG TABLET PO ONE (18:17)
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
== END 2019-05-08 18:25 | disposition home or self-care (01) ==
LOC: ER 16:43
DX: S09.90XA Unspecified injury of head, initial encounter (principal); R51 Headache; M54.2 Cervicalgia; R11.0 Nausea; Y04.2XXA Assault by strike against or bumped into by another person, initial encounter; Y92.009 Unspecified place in unspecified non-institutional (private) residence as the place of occurrence of the external cause; I10 Essential (primary) hypertension; F17.210 Nicotine dependence, cigarettes, uncomplicated
CPT/HCPCS: 70450; 99283

== ENCOUNTER 2019-07-03 02:09 | Emergency (ER) | payer MEDICAID ==
--- NOTE | 2019-07-03 02:28 | Emergency Department Record ---
History of Present Illness - General Chief Complaint: Recheck - Other Stated Complaint: SCABIES/RECHECK Time Seen by Provider: 07/03/19 02:21 Source: Patient Mode of arrival: Ambulatory Limitations: No limitations - History of Present Illness Initial Comments: Pt concerned that she has scabies. Complains of itching and bugs on skin. No fever. Using over the counter "Bisi dry" for itch. No other complaint. - Related Data Home Medications Medication Instructions Recorded Confirmed Last Taken No Home Med [NO HOME MEDS] 07/03/19 07/03/19 Unknown Allergies Allergy/AdvReac Type Severity Reaction Status Date / Time diphenhydramine HCl Allergy Severe SWELLING Unverified 07/02/19 18:42 [From Benadryl] OF THE FACE divalproex sodium Allergy Severe RAPID Unverified 07/02/19 18:42 [From Depakote] HEART RATE citalopram hydrobromide Allergy Intermediate RASH Unverified 07/02/19 18:42 [From Celexa] escitalopram oxalate Allergy Intermediate RASH Unverified 07/02/19 18:42 [From Lexapro] haloperidol [From Haldol] Allergy Intermediate RASH Unverified 07/02/19 18:42 haloperidol lactate Allergy Intermediate RASH Unverified 07/02/19 18:42 [From Haldol] latex Allergy Intermediate RASH Unverified 07/02/19 18:42 Review of Systems Constitutional: Denies: Chills Eyes: Denies: Eye discharge ENT: Denies: Congestion Respiratory: Denies: Cough Cardiovascular: Denies: Arrhythmia Endocrine: Denies: Fatigue Gastrointestinal: Denies: Abdominal pain Skin: Reports: As per HPI Past Medical History - SOCIAL HISTORY Smoking Status: Current every day smoker Alcohol Use: None Drug Use: None - RESPIRATORY Hx Respiratory Disorders: No - CARDIOVASCULAR Hx Cardio Disorders: Yes Hx Hypertension: Yes - NEURO Hx Neuro Disorders: No - GI Hx GI Disorders: No - Hx Genitourinary Disorders: No - ENDOCRINE Hx Endocrine Disorders: No - MUSCULOSKELETAL Hx Musculoskeletal Disorders: No - PSYCH Hx Psych Problems: Yes Hx Anxiety: Yes Hx Depression: Yes Comment:: PTSD. scizophernia - HEMATOLOGY/ONCOLOGY Hx Hematology/Oncology Disorders: No Family Medical History Any Significant Family History?: Yes Hx Cancer: Father, Mother Hx Depression: Father, Mother Hx Stroke: Grandparents Physical Exam - General General Appearance: Alert, Oriented x3, Cooperative, No acute distress - Head Head exam: Atraumatic - Eye Eye exam: PERRL - ENT ENT exam: Mucous membranes moist - Neck Neck exam: Normal inspection, Full ROM - Respiratory Respiratory exam: Normal lung sounds bilaterally. negative: Respiratory distress - Cardiovascular Cardiovascular Exam: Regular rate, Normal rhythm - GI/Abdominal GI/Abdominal exam: Soft, Normal bowel sounds - Skin Skin exam: Other (Multiple areas of skin on arms and upper back with evidence of scratching. BISI DRY cream on sitres. No eveidence of tracts to web spaces or belt line. ) Course - Reevaluation(s) Reevaluation #1: 07/03/19 02:31 seen with concern for scabies. At this tiem exam is not consistent with scabies. Discussed OTC treatment with RID/NIX Disposition Disposition: Discharge Clinical Impression: No problem, feared complaint unfounded Condition: (1) Good Additional Instructions: If concern for scabies purchase over the counter RID or NIX and use as directed on box. See your family doctor as needed. Forms: Patient Portal Access Time of Disposition: 02:27 Quality - Quality Measures Quality Measures: N/A - Blunt Head Trauma - Adult ICD10 Codes Entered: No Utilization of CT for Minor Blunt Head Trauma: Not Eligible For Measure - Blood Pressure Screening Does Patient Have Any of the Following: No Blood Pressure Classification: Hypertensive Reading Systolic Measurement: 150 Diastolic Measurement: 102 Screening for High Blood Pressure: < Pre-Hypertensive BP, F/U Documented > [G8950] Pre-Hypertensive Follow-up Interventions: Follow-up with rescreen every year.
== END 2019-07-03 02:33 | disposition home or self-care (01) ==
LOC: ER 02:09
DX: L29.9 Pruritus, unspecified (principal); I10 Essential (primary) hypertension; F17.210 Nicotine dependence, cigarettes, uncomplicated; Z71.1 Person with feared health complaint in whom no diagnosis is made
CPT/HCPCS: 99282

== ENCOUNTER 2019-07-05 10:58 | Emergency (ER) | payer MEDICAID ==
--- NOTE | 2019-07-05 11:08 | Emergency Department Record ---
History of Present Illness - General Stated complaint: RASH Time Seen by Provider: 07/05/19 11:01 Source: Patient Mode of Arrival: Ambulatory Limitations: No limitations - History of Present Illness Initial comments: 34 yo female presents with a concern about a rash. She is concerned about scabies. She states she has even seen the mites. She has small scabs in various areas. No fevers. She suspects her cats. She is using a topical anti itch cream currently. MD complaint: Rash -: Days(s) Hx Tetanus Toxoid Vaccination: Yes Year of Tetanus Vaccination: 2012 Location: Generalized Severity: Moderate Quality: Other (itches) Consistency: Constant Improves with: Other (itch cream) Associated symptoms: Other (itches) Treatments Prior to Arrival: Benadryl - Related Data Previous Rx's Medication Instructions Recorded Permethrin [Elimite] 60 gm TP WEEKLY #1 cream..g. 07/05/19 Permethrin [Nix] 1 apply TOP ASDIR #59 ml 07/05/19 Allergies Allergy/AdvReac Type Severity Reaction Status Date / Time diphenhydramine HCl Allergy Severe SWELLING Verified 07/05/19 11:06 [From Benadryl] OF THE FACE divalproex sodium Allergy Severe RAPID Verified 07/05/19 11:06 [From Depakote] HEART RATE citalopram hydrobromide Allergy Intermediate RASH Verified 07/05/19 11:06 [From Celexa] escitalopram oxalate Allergy Intermediate RASH Verified 07/05/19 11:06 [From Lexapro] haloperidol [From Haldol] Allergy Intermediate RASH Verified 07/05/19 11:06 haloperidol lactate Allergy Intermediate RASH Verified 07/05/19 11:06 [From Haldol] latex Allergy Intermediate RASH Verified 07/05/19 11:06 Review of Systems Constitutional: Denies: Chills, Fever, Malaise, Weakness Eyes: Denies: Eye discharge ENT: Denies: Congestion, Throat pain Respiratory: Denies: Cough, Dyspnea Cardiovascular: Denies: Chest pain, Syncope Endocrine: Denies: Fatigue Gastrointestinal: Denies: Abdominal pain, Diarrhea, Nausea, Vomiting Genitourinary: Denies: Dysuria, Hematuria Musculoskeletal: Denies: Arthralgia, Back pain, Myalgia Skin: Reports: As per HPI, Change in color, Rash. Denies: Bruising Neurological: Denies: Numbness, Tingling, Weakness Psychiatric: Denies: Anxiety Hematological/Lymphatic: Denies: Easy bleeding, Easy bruising Past Medical History - SOCIAL HISTORY Smoking Status: Current every day smoker Drug Use: None - RESPIRATORY Hx Respiratory Disorders: No - CARDIOVASCULAR Hx Cardio Disorders: Yes Hx Hypertension: Yes - NEURO Hx Neuro Disorders: No - GI Hx GI Disorders: No - Hx Genitourinary Disorders: No - ENDOCRINE Hx Endocrine Disorders: No - MUSCULOSKELETAL Hx Musculoskeletal Disorders: No - PSYCH Hx Psych Problems: Yes Hx Anxiety: Yes Hx Depression: Yes Comment:: PTSD. scizophernia - HEMATOLOGY/ONCOLOGY Hx Hematology/Oncology Disorders: No Family Medical History Hx Cancer: Father, Mother Hx Depression: Father, Mother Hx Stroke: Grandparents Physical Exam - General General Appearance: Alert, Oriented x3, Cooperative, No acute distress Limitations: No limitations - Head Head exam: Atraumatic, Normal inspection - Eye Eye exam: Normal appearance. negative: Conjunctival injection - ENT ENT exam: Normal exam Ear exam: Normal external inspection Nasal Exam: Normal inspection Mouth exam: Normal external inspection - Neck Neck exam: Normal inspection - Respiratory Respiratory exam: Normal lung sounds bilaterally. negative: Wheezes - Extremities Extremities exam: negative: Normal inspection - Back Back exam: Denies: Normal inspection - Neurological Neurological exam: Alert, Oriented X3 - Psychiatric Psychiatric exam: Normal affect, Normal mood - Skin Skin exam: Erythema, Rash. negative: Vesicles Distribution of rash: Generalized Description of rash: Crusting, Papular (scabs, some noted on the feet) Disposition Disposition: Discharge Clinical Impression: Rash, Scabies Disposition: Home, Self-Care Condition: (1) Good Instructions: Scabies (ED) Additional Instructions: Wash all clothing and bedding in hot water Follow up tomorrow with your doctor as scheduled. Prescriptions: Permethrin [Elimite] 60 gm TP WEEKLY #1 cream..g. Permethrin [Nix] 1 apply TOP ASDIR #59 ml Forms: Patient Portal Access Time of Disposition: 11:12 Quality - Quality Measures Quality Measures: N/A - Blood Pressure Screening Does Patient Have Any of the Following: No Blood Pressure Classification: Hypertensive Reading Systolic Measurement: 156 Diastolic Measurement: 101 Screening for High Blood Pressure: < Pre-Hypertensive BP, F/U Documented > [G8950] Pre-Hypertensive Follow-up Interventions: Referral to alternative/primary care sofi hassan
== END 2019-07-05 11:15 | disposition home or self-care (01) ==
LOC: ER 10:58
DX: B86 Scabies (principal); I10 Essential (primary) hypertension; F17.210 Nicotine dependence, cigarettes, uncomplicated
CPT/HCPCS: 99283